=== PATIENT | male | born 1955 | race African-American/Black ===

== ENCOUNTER 2018-09-25 22:41 | Emergency (ER) | payer MEDICARE ==
[~2018-09-25] VITALS: Ht 172.7 cm; Wt 91.0 kg
[2018-09-26 00:30] LABS: BASOPHILS % 1.1 % (0.0-2.0); EOSINOPHILS % 0.2 % (0.0-5.0); HEMOGLOBIN. 14.3 g/dL (14.0-18.0); LYMPHOCYTES % 28.1 % (20.0-50.0); MEAN CORPUSCULAR HEMOGLOBIN 27.8 pg (28.0-32.0); MEAN CORPUSCULAR VOLUME 81.4 fL (80.0-94.0); MEAN PLATELET VOLUME 8.3 fl (7.4-10.4); MONOCYTES % 13.6 % (2.0-8.0); PLATELET 171 x1000/uL (130-400); RED BLOOD CELL COUNT 5.15 mill/uL (4.7-6.1); RED CELL DISTRIBUTION WIDTH 13.5 % (11.6-14.6)
[2018-09-26 00:32] LABS: ETHANOL BLOOD 224 mg/dL
[2018-09-26 06:24] VITALS: BP 122/80
== END 2018-09-26 06:23 | disposition home or self-care (01) ==
LOC: ER 22:41
DX: F10.129 Alcohol abuse with intoxication, unspecified (principal); I10 Essential (primary) hypertension; R25.1 Tremor, unspecified; F17.200 Nicotine dependence, unspecified, uncomplicated; Y90.9 Presence of alcohol in blood, level not specified
CPT/HCPCS: 36415; 80320; 84484; 93005; 99284; G0480